=== PATIENT | female | born 1955 | race Caucasian/White ===

== ENCOUNTER 2022-10-02 15:57 | Emergency (ER) | payer MEDICARE ==
[2022-10-02] MEDS ORDERED: Sodium Chloride 0.9% 10 ML Syringe FLUSH PRN (17:33)
[2022-10-02] MEDS ORDERED: Sodium Chloride 0.9% 75 ML IV ONE (17:43)
[2022-10-02] MEDS ORDERED: Iopamidol 755 Mg/ML 100 ML Bottle IV ONE (17:43)
[2022-10-02] MEDS ORDERED: Sodium Chloride 0.9% 10 ML Syringe FLUSH ONE (17:43)
[2022-10-02] MEDS ORDERED: Sodium Chloride 0.9% 1,000 ML IV SCH (17:45)
[2022-10-02 17:57] LABS: ESTIMATED GFR 61 mL/min (>60)
[2022-10-02 18:28] LABS: TROPONIN I HIGH SENSITIVITY 7.9 pg/mL (<=60.3)
[2022-10-02] MEDS ORDERED: Ondansetron 4 MG/2 ML SDV IVPUSH ONE (18:49)
== END 2022-10-02 20:39 | disposition home or self-care (01) ==
LOC: JP.ED 15:57
DX: G45.9 Transient cerebral ischemic attack, unspecified (principal); E78.00 Pure hypercholesterolemia, unspecified; K21.9 Gastro-esophageal reflux disease without esophagitis; Z79.899 Other long term (current) drug therapy; Z79.82 Long term (current) use of aspirin
CPT/HCPCS: 36415; 70450; 70496; 70498; 80053; 83605; 84484; 85025; 93005; 96361; 96374; 99284; J2405; J3490; J7030; Q9967

== ENCOUNTER 2023-09-05 15:12 | Emergency (ER) | payer MEDICARE ==
[2023-09-05] MEDS ORDERED: Ibuprofen 600 MG Tab PO ONE (15:51)
== END 2023-09-05 16:59 | disposition home or self-care (01) ==
LOC: JP.ED 15:12
DX: S40.012A Contusion of left shoulder, initial encounter (principal); E78.00 Pure hypercholesterolemia, unspecified; K21.9 Gastro-esophageal reflux disease without esophagitis; Z86.16 Personal history of COVID-19; Z90.710 Acquired absence of both cervix and uterus; Z79.899 Other long term (current) drug therapy; W01.0XXA Fall on same level from slipping, tripping and stumbling without subsequent striking against object, initial encounter
CPT/HCPCS: 73030; 99282; 99283; A9270

== ENCOUNTER 2023-09-24 03:01 | Emergency (ER) | payer MEDICARE ==
[2023-09-24] MEDS: Bupivacaine 0.5% 10 ML SDV INJECT ONE (03:34)
[2023-09-24] MEDS: Triamcinolone Acetonide 40 MG/ML 1 ML SDV INJECT PRN (03:34)
[2023-09-24] MEDS: HYDROmorphone 1 MG/ML Syringe IM ONE (03:44)
== END 2023-09-24 04:14 | disposition home or self-care (01) ==
LOC: JP.ED 03:01
DX: M54.32 Sciatica, left side (principal); E78.00 Pure hypercholesterolemia, unspecified; K21.9 Gastro-esophageal reflux disease without esophagitis; Z86.16 Personal history of COVID-19; Z90.710 Acquired absence of both cervix and uterus; Z79.899 Other long term (current) drug therapy
CPT/HCPCS: 96372; 99283; J0665; J1170; J3301